=== PATIENT | male | born 1970 | race African-American/Black ===

== ENCOUNTER 2020-09-20 06:32 | Day surgery (SDC) | payer OTHER ==
[~2020-09-20] VITALS: Ht 177.8 cm; Wt 88.9 kg
[2020-09-20 07:21] VITALS: BP 142/79
[2020-09-20 10:10] VITALS: BP 137/73
== END 2020-09-20 10:15 | disposition home or self-care (01) ==
LOC: DS 06:32 → OR 10:30
PROVIDERS: ATTEND Internal Medicine
DX: Z12.11 Encounter for screening for malignant neoplasm of colon (principal); K57.30 Diverticulosis of large intestine without perforation or abscess without bleeding; I51.9 Heart disease, unspecified; N40.0 Benign prostatic hyperplasia without lower urinary tract symptoms; Z95.2 Presence of prosthetic heart valve; Z20.828 Contact with and (suspected) exposure to other viral communicable diseases
CPT/HCPCS: 45378; J1200; J1610; J2250; J2310; J3010; J3490; U0003